=== PATIENT | male | born 1945 | race Caucasian/White ===

== ENCOUNTER → 2016-11-04 | Outpatient (CLI) | payer MEDICARE, OTHER ==
[~2016-11-04] MED LIST: BARIUM SUSPENSION 105% (LIQUID POLIBAR PLUS) 240 ML/DOSE PO ONE; BARIUM SUSPENSION 60% (LIQUID EZ PAQUE) 240 ML DOSE PO ONE
--- NOTE | 2016-11-04 09:27 | Diagnostic Imaging Report ---
EXAMINATION: Barium swallow double-contrast. INDICATION: Dysphagia Fluoroscopy time: 33 seconds TECHNIQUE: Infrastructure Technician image of the chest was performed. Subsequently, the patient was given gas forming granules for oral ingestion followed by thick and thin barium to drink. Swallowing through the esophagus was observed with fluoroscopy and overhead images, as well as multiple spot images in the upright and prone positions, were taken. FINDINGS: Infrastructure Technician image of the chest demonstrate no significant abnormality. No significant reflux is seen during the study. Occasional tertiary contractions with intermittent mild delay of esophageal emptying is seen. The esophagus is normal in caliber and contour. There is no mucosal abnormality, diverticulum or filling defect to suggest a mass. There is no hiatal hernia demonstrated. 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 Dictated by: Dictated on workstation # [id number]
== END ==
LOC: RAD 08:23
DX: R13.10 Dysphagia, unspecified (principal)
CPT/HCPCS: 74220

== ENCOUNTER → 2019-01-04 | Outpatient (CLI) | payer MEDICARE, OTHER | END | disposition home or self-care (01) | LOC: PREOP 06:42 | PROVIDERS: ATTEND Specialist | DX: Z01.818 Encounter for other preprocedural examination (principal) ==

== ENCOUNTER 2019-01-06 07:48 | Day surgery (SDC) | payer MEDICARE, OTHER ==
[~2019-01-06] VITALS: Ht 180.3 cm; Wt 95.3 kg
[2019-01-06] MEDS: TETRACAINE 0.5% OPHTH SOLN 4 ML BTL (SINGLE DOSE ONLY) OU PRN ×4 (08:01→08:17)
[2019-01-06 08:03] VITALS: BP 147/83
[2019-01-06] MEDS: PHENYLEPHRINE 10% OPHTH (NEO-SYN) 5 ML BTL OU PRN ×3 (08:06→08:17)
[2019-01-06] MEDS: TROPICAMIDE 1% OPH SOLN (MYDRIACYL) 15 ML BTL OU PRN ×3 (08:06→08:17)
--- NOTE | 2019-01-06 08:51 | Ophthalmologist Pre-Op Note ---
Pre-Operative Progress Note H&P Reviewed The H&P was reviewed, patient examined and no changes noted. Date H&P Reviewed: Jan 06, 2019 Time H&P Reviewed: 08:51 Pre-Op Dx Secondary Cataract, Right Eye ZACH PEREZ MD Jan 06, 2019 08:51
--- OUTSIDE RECORDS SUMMARY | 2019-01-06 08:52 | XMS REPORT | Continuity of Care Document ---
Author Organization Unknown Address Unknown Allergies Active Description Code Type Severity Reaction Onset Reported/Identified Relationship to Patient Clinical Status Yes No Known Allergies [id number] Drug Allergy Unknown N/A 09/25/2014 Medications There is no data. Problems Date Dx Coded Attending Type Code Diagnosis Diagnosed By 05/31/2013 ERNIE AGUIRRE MD Ot 593.9 RENAL URETERAL DIS NOS 09/25/2014 Ot 786.50 09/25/2014 Ot 789.06 09/25/2014 Ot 530.81 09/25/2014 Ot 535.40 09/25/2014 Ot 569.0 09/25/2014 Ot V76.12 09/25/2014 ERNIE AGUIRRE MD Ot 786.05 09/25/2014 ERNIE AGUIRRE MD Ot 786.2 09/25/2014 ERNIE AGUIRRE MD Ot 786.50 09/25/2014 Ot 593.9 09/25/2014 ERNIE AGUIRRE MD Ot 348.89 09/25/2014 Ot 593.9 10/09/2014 CATALINA CHURCHILL MD Ot 272.4 10/09/2014 ZHAO GREER, CATALINA Johnson Ot 278.00 10/09/2014 ZHAO GREER, CATALINA Johnson Ot 401.9 10/09/2014 CATALINA CHURCHILL MD Ot 786.50 10/09/2014 CATALINA CHURCHILL MD Ot 272.4 10/09/2014 ZHAO GREER, CATALINA Johnson Ot 278.00 10/09/2014 CATALINA CHURCHILL MD Ot 401.9 10/09/2014 CATALINA CHURCHILL MD Ot 786.50 10/09/2014 ZHAO GREER, CATALINA Johnson Ot 272.4 10/09/2014 ZHAO GREER, CATALINA Johnson Ot 278.00 10/09/2014 CATALINA CHURCHILL MD Ot 401.9 10/09/2014 CATALINA CHURCHILL MD Ot 786.50 11/16/2014 CATALINA CHURCHILL MD Ot 272.4 11/16/2014 CATALINA CHURCHILL MD Ot 278.00 11/16/2014 CATALINA CHURCHILL MD Ot 401.9 11/16/2014 CATALINA CHURCHILL MD Ot 786.50 11/03/2016 Ot 530.81 ESOPHAGEAL REFLUX 11/03/2016 Ot 535.40 OTH SPECIFIED GASTRITIS,W/O MENTION OF H 11/03/2016 Ot 569.0 ANAL RECTAL POLYP 11/03/2016 Ot V76.12 OTH SCREEN MAMMO- MALIGN NEOPLASM OF HÉCTOR 11/03/2016 ERNIE AGUIRRE MD Ot 786.05 SHORTNESS OF BREATH 11/03/2016 ERNIE AGUIRRE MD Ot 786.2 COUGH 11/03/2016 ERNIE AGUIRRE MD Ot 786.50 CHEST PAIN NOS 11/03/2016 Ot 593.9 RENAL URETERAL DIS NOS 11/03/2016 ERNIE AGUIRRE MD Ot 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 11/03/2016 CATALINA CHURCHILL MD Ot 272.4 HYPERLIPIDEMIA NEC/NOS 11/03/2016 CATALINA CHURCHILL MD Ot 278.00 OBESITY, NOS 11/03/2016 CATALINA CHURCHILL MD Ot 401.9 HYPERTENSION NOS 11/03/2016 CATALINA CHURCHILL MD Ot 786.50 CHEST PAIN NOS 11/04/2016 Ot 530.81 ESOPHAGEAL REFLUX 11/04/2016 Ot 535.40 OTH SPECIFIED GASTRITIS,W/O MENTION OF H 11/04/2016 Ot 569.0 ANAL RECTAL POLYP 11/04/2016 Ot V76.12 OTH SCREEN MAMMO- MALIGN NEOPLASM OF HÉCTOR 11/04/2016 ERNIE AGUIRRE MD Ot 786.05 SHORTNESS OF BREATH 11/04/2016 ERNIE AGUIRRE MD Ot 786.2 COUGH 11/04/2016 ERNIE AGUIRRE MD Ot 786.50 CHEST PAIN NOS 11/04/2016 Ot 593.9 RENAL URETERAL DIS NOS 11/04/2016 ERNIE AGUIRRE MD Ot 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 11/04/2016 CATALINA CHURCHILL MD Ot 272.4 HYPERLIPIDEMIA NEC/NOS 11/04/2016 CATALINA CHURCHILL MD Ot 278.00 OBESITY, NOS 11/04/2016 CATALINA CHURCHILL MD Ot 401.9 HYPERTENSION NOS 11/04/2016 CATALINA CHURCHILL MD Ot 786.50 CHEST PAIN NOS 11/05/2016 MILTON WYNNE MANAGER RETIREMENT Ot R13.10 DYSPHAGIA, UNSPECIFIED 11/05/2016 MILTON WYNNE MANAGER RETIREMENT Ot R13.10 DYSPHAGIA, UNSPECIFIED 11/05/2016 MILTON WYNNE MANAGER RETIREMENT Ot R13.10 DYSPHAGIA, UNSPECIFIED 12/02/2016 MILTON WYNNE MANAGER RETIREMENT Ot R13.10 DYSPHAGIA, UNSPECIFIED 12/07/2016 MILTON WYNNE MANAGER RETIREMENT Ot R13.10 DYSPHAGIA, UNSPECIFIED 01/05/2019 ZACH PEREZ MD Ot Z01.818 ENCOUNTER FOR OTHER PREPROCEDURAL EXAMIN Procedures There is no data. Results There is no data. Encounters ACCT No. Visit Date/Time Discharge Status Pt. Type Provider Facility Loc./Unit Complaint [id number] 11/04/2016 08:23:00 11/04/2016 23:59:59 CLS Outpatient SHERRELLMARISCody Wild MANAGER RETIREMENT [facility] RAD R13.10 DYSPHAGIA [id number] 09/25/2014 09:46:00 09/25/2014 23:59:59 CLS Outpatient CATALINA CHURCHILL MD [facility] CARD CP,HTN,HLP [id number] 09/06/2013 08:36:00 09/06/2013 23:59:59 CLS Outpatient ERNIE AGUIRRE MD [facility] RAD RT MIDDLE LOBE LESION [id number] 03/06/2013 08:53:00 05/31/2013 00:01:00 DIS Outpatient ERNIE AGUIRRE MD [facility] LAB RENAL INSUFFIENCY [id number] 02/24/2013 15:21:00 02/24/2013 23:59:59 CLS Outpatient ERNIE AGUIRRE MD [facility] RAD COUGH,CHEST PAIN, [id number] 01/06/2019 10:15:00 PEN Preadmit ZACH PEREZ MD [facility] SDC YAG [id number] 01/04/2019 06:42:00 ACT Outpatient ZACH PEREZ MD L [facility] PREOP YAG LEFT EYE [id number] 06/01/2013 00:00:00 Document Registration [id number] 06/12/2009 08:22:00 Document Registration [id number] 05/20/2009 08:03:00 Document Registration [id number] 05/13/2009 15:17:00 Document Registration [email or web address] 09/26/2014 00:42:29 ACT Document Registration
[2019-01-06 08:57] VITALS: BP 147/83
--- NOTE | 2019-01-06 09:01 | Ophthalmology Operative Report ---
YAG Capsulotomy PREOPERATIVE DIAGNOSIS: Secondary Cataract Left Eye POSTOPERATIVE DIAGNOSIS: Secondary Cataract Left Eye PROCEDURE: YAG Capsulotomy, left eye SURGEON: Noble Perez ANESTHESIA: Topical anesthesia COMPLICATIONS: None ESTIMATED BLOOD LOSS: Minimal DESCRIPTION OF PROCEDURE: After proper informed consent was obtained, the patient's, a 73 male left eye received one drop of Tropicamide and one drop of Tetracaine. The patient was then placed at the YAG laser and using a power of [3.7 ] millijoules and [16 ] bursts were used to fashion a central capsulotomy. The patient tolerated the procedure well without complications. NOBLE PEREZ MD Jan 06, 2019 09:01
== END 2019-01-06 08:57 | disposition home or self-care (01) ==
LOC: SDC 07:48
PROVIDERS: ATTEND Specialist
DX: H26.492 Other secondary cataract, left eye (principal); Z87.891 Personal history of nicotine dependence; Z79.899 Other long term (current) drug therapy

== ENCOUNTER → 2019-09-09 | Outpatient (CLI) | payer MEDICARE ==
[2019-09-09 17:44] LABS: BASOPHILS % (AUTO) 0 % (0-10); EOSINOPHILS # (AUTO) 0.2 10^3/uL (0.0-0.3); EOSINOPHILS % (AUTO) 1 % (0-10); HEMATOCRIT 45 % (40-54); HEMOGLOBIN 15.8 G/DL (13.3-17.7); LYMPHOCYTES # (AUTO) 2.3 X 10^3 (1.0-4.0); LYMPHOCYTES % (AUTO) 16 % (12-44); MEAN CORPUSCULAR HEMOGLOBIN 31 PG (25-34); MEAN CORPUSCULAR HGB CONC 35 G/DL (32-36); MEAN CORPUSCULAR VOLUME 88 FL (80-99); MEAN PLATELET VOLUME 9.7 FL (7.4-10.4); MONOCYTES # (AUTO) 1.4 X 10^3 (0.0-1.0); MONOCYTES % (AUTO) 10 % (0-12); NEUTROPHILS # (AUTO) 10.5 X 10^3 (1.8-7.8); NEUTROPHILS % (AUTO) 73 % (42-75); PLATELET COUNT 345 10^3/uL (130-400); RED CELL DISTRIBUTION WIDTH 13.2 % (10.0-14.5); WHITE BLOOD COUNT 14.4 10^3/uL (4.3-11.0)
[2019-09-09 17:58] LABS: ALANINE AMINOTRANSFERASE 14 U/L (0-55); ALBUMIN 4.6 GM/DL (3.2-4.5); ALKALINE PHOSPHATASE 48 U/L (40-136); AMYLASE 75 U/L (25-125); BUN/CREATININE RATIO 13; CALCIUM 9.5 MG/DL (8.5-10.1); CARBON DIOXIDE 23 MMOL/L (21-32); CHLORIDE 100 MMOL/L (98-107); CREATININE SERUM 1.46 MG/DL (0.60-1.30); GFR ESTIMATED 47; GLUCOSE 95 MG/DL (70-105); LIPASE 68 U/L (8-78); POTASSIUM 4.2 MMOL/L (3.6-5.0); SODIUM 133 MMOL/L (135-145); TOTAL PROTEIN 7.4 GM/DL (6.4-8.2)
[2019-09-09 17:59] LABS: BAND NEUTROPHILS 2 %; NEUTROPHILS % (MANUAL) 72 %
[2019-09-09 18:00] LABS: EOSINOPHILS % (MANUAL) 2 %; LYMPHOCYTES % (MANUAL) 15 %; MONOCYTES % (MANUAL) 9 %; RBC MORPH NORMAL
== END ==
LOC: LAB 17:16
PROVIDERS: ATTEND Nurse Practitioner Family
DX: K56.699 Other intestinal obstruction unspecified as to partial versus complete obstruction (principal); N30.01 Acute cystitis with hematuria; I10 Essential (primary) hypertension; J30.89 Other allergic rhinitis; E78.5 Hyperlipidemia, unspecified
CPT/HCPCS: 36415; 80053; 82150; 83690; 85007; 85027; 86677

== ENCOUNTER → 2019-09-09 | Outpatient (CLI) | payer MEDICARE, OTHER ==
--- NOTE | 2019-09-09 15:16 | Diagnostic Imaging Report ---
PROCEDURE: CT abdomen and pelvis without contrast. TECHNIQUE: Multiple contiguous axial images were obtained through the abdomen and pelvis without the use of intravenous contrast. Auto Exposure Controls were utilized during the CT exam to meet ALARA standards for radiation dose reduction. INDICATION: Generalized abdominal pain. Concern for bowel obstruction. COMPARISON: None. FINDINGS: The heart is unremarkable. The included lung bases are clear. The liver, spleen, adrenal glands, and kidneys have a normal noncontrast CT appearance. There is no pathologically enlarged mesenteric or retroperitoneal adenopathy. Mild inflammatory changes are seen adjacent to the 2nd and 3rd portion of the duodenum and pancreatic head. No pancreatic masses are visualized or pancreatic ductal dilation. The bowel loops are nondilated. The appendix is visualized in the right lower quadrant and has a normal appearance. There is no free fluid or free air. The osseous structures are age-appropriate. A hemangioma is visualized in the L2 vertebral body. There is calcified aortic and iliac atherosclerotic plaque without aneurysm. The bladder is nondistended. There is no free air, loculated collection, or adenopathy in the pelvis. IMPRESSION: 1. Mild inflammatory changes adjacent to the 2nd and 3rd portion of the duodenum and pancreatic head. These findings can be seen with duodenitis versus groove pancreatitis. Recommend correlation with clinical findings and patient's symptoms. No evidence of bowel obstruction. Findings were discussed with Orly Peterson at 3:10 PM on 09/09/[address] Krzysztof Londono. Dictated by: Dictated on workstation # [id number]
== END ==
LOC: RAD 13:33
PROVIDERS: ATTEND Nurse Practitioner Family
DX: N30.01 Acute cystitis with hematuria (principal); I10 Essential (primary) hypertension; J30.89 Other allergic rhinitis; E78.5 Hyperlipidemia, unspecified; K56.699 Other intestinal obstruction unspecified as to partial versus complete obstruction
CPT/HCPCS: 74176

== ENCOUNTER → 2019-11-01 | Outpatient (CLI) | payer MEDICARE ==
[~2019-11-01] MED LIST changes: -BARIUM SUSPENSION 105% (LIQUID POLIBAR PLUS) 240 ML/DOSE PO ONE; -BARIUM SUSPENSION 60% (LIQUID EZ PAQUE) 240 ML DOSE PO ONE; +BARIUM for suspension 96% w/w (Vanilla Silq Medium Density) PO ONE; +BARIUM for suspension 98% w/w (Vanilla Silq High Density) PO ONE; +FENO145T26 PO; +LISI-552 PO
--- NOTE | 2019-11-01 10:45 | Diagnostic Imaging Report ---
EXAMINATION: Barium swallow, esophagram. INDICATION: Dysphagia. TECHNIQUE: A double contrast exam was performed. FINDINGS: The previous barium swallow exam of 11/04/2016 noted minimal motility dysfunction but failed to show any sign of a mass or stricture. However, on this exam, when the patient swallowed there did appear to be a focal area of narrowing of the proximal esophagus. The hypopharynx proximal to this area of narrowing also seems somewhat distended. I am not certain if this area of narrowing is due to a stricture, prominence of the cricopharyngeus muscle, or to a combination of both. Endoscopy would be recommended for further evaluation. The esophagus distal to the area of narrowing is generally unremarkable. There is no hiatal hernia or gastroesophageal reflux. The stomach shows good distensibility and motility. The duodenal bulb and proximal small bowel are unremarkable for an acute abnormality. IMPRESSION: 1. There is a focal area of narrowing in the proximal esophagus. Whether this is secondary to a stricture, prominence of the cricopharyngeus muscle, or to a combination of both is not certain. Endoscopy would be recommended for further study. 2. There is no other abnormality of the esophagus. 3. The stomach, duodenal bulb, and proximal small bowel are generally unremarkable. 4. These results were discussed with Dr. Carpenter. Dictated by: Dictated on workstation # [id number]
== END ==
LOC: RAD 09:19
PROVIDERS: ATTEND Surgery
DX: R13.19 Other dysphagia (principal)
CPT/HCPCS: 74220

== ENCOUNTER 2019-11-03 06:31 | Outpatient (RCR) | payer MEDICARE ==
[~2019-11-03] VITALS: Ht 177.8 cm; Wt 94.5 kg
[~2019-11-03 06:31] MED LIST changes: -BARIUM for suspension 96% w/w (Vanilla Silq Medium Density) PO ONE; -BARIUM for suspension 98% w/w (Vanilla Silq High Density) PO ONE
[2019-11-07] MEDS ORDERED: PANT40TA2 PO (12:20)
== END 2019-11-03 15:44 | disposition home or self-care (01) ==
LOC: PREOP 06:31
PROVIDERS: ATTEND Surgery
DX: Z01.818 Encounter for other preprocedural examination (principal); Z11.59 Encounter for screening for other viral diseases
CPT/HCPCS: 87635

== ENCOUNTER → 2019-12-20 | Outpatient (CLI) | payer MEDICARE ==
[~2019-12-20] MED LIST changes: +PANT40TA2 PO
--- NOTE | 2019-12-20 13:02 | Diagnostic Imaging Report ---
INDICATION: Dysphagia. FINDINGS: NECK: The nasopharynx, oropharynx, and hypopharynx are unremarkable. The prevertebral and retropharyngeal spaces are unremarkable. No airway embarrassment. The epiglottis and aryepiglottic folds are normal. The parotid, submandibular, and thyroid glands are unremarkable. No cervical lymphadenopathy, mass, or fluid collection. Chronic degenerative changes to the mid to lower cervical spine with no acute appearing or destructive bony pathology. Cervical esophagus shows no radiodense filling defect or evidence for its obstruction or perforation. CHEST: The thoracic esophagus is nondilated. No paraesophageal mass, hemorrhage, fluid collection, or gas. No findings of an impacted foreign body, obstruction, or perforation. The heart and pericardium appear nonacute. There is no pleural effusion. The aorta is nonaneurysmal and patent. No focal pulmonary consolidation. No lung mass or thoracic lymphadenopathy. No acute soft tissue or osseous chest wall lesion. The visualized upper abdomen appears nonacute. IMPRESSION: NECK: No mass, fluid collection, inflammatory process, airway embarrassment, or foreign body. CHEST: No acute appearing abnormality. Dictated by: Dictated on workstation # [id number]
== END ==
LOC: RAD 10:39
PROVIDERS: ATTEND Surgery
DX: R13.10 Dysphagia, unspecified (principal)
CPT/HCPCS: 70491; 71260

== ENCOUNTER 2022-12-16 08:23 | Outpatient (CLI) | payer MEDICARE ==
[~2022-12-16 08:23] MED LIST changes: -LISI-552 PO; +LISI20TA26 PO
== END 2022-12-16 08:50 ==
LOC: SLEEP 08:23
PROVIDERS: ATTEND Internal Medicine Cardiovascular Disease
DX: G47.33 Obstructive sleep apnea (adult) (pediatric) (principal); I10 Essential (primary) hypertension
CPT/HCPCS: G0399

== ENCOUNTER → 2023-01-21 | Outpatient (CLI) | payer MEDICARE ==
--- NOTE | 2023-01-21 10:42 | Diagnostic Imaging Report ---
CT Lung Screening INDICATION:40 pack year smoking history, cessation 20 years ago TECHNIQUE: Noncontrast, low-dose CT imaging performed according to the lung cancer screening protocol. Auto Exposure Controls were utilize during the CT exam to meet ALARA standards for radiation dose reduction. COMPARISON:Chest CT 12/20/2019 FINDINGS:No suspicious pulmonary nodule or dominant lung mass. There were no findings to suggest lung cancer. There is no thoracic adenopathy. The aorta nonaneurysmal. There are coronary artery atherosclerotic vascular calcifications along the LAD. No pleural or pericardial effusion. There is a tiny hiatal hernia. The visible upper abdomen nonacute. IMPRESSION: No findings of lung cancer LUNG-RADS CATEGORY:Category 1 MODIFIER: None OTHER SIGNIFICANT FINDINGS: Coronary atherosclerotic calcifications, no acute appearing abnormality. Dictated by: Dictated on workstation # [id number]
== END ==
LOC: RAD 09:07
PROVIDERS: ATTEND Nurse Practitioner Family
DX: Z12.2 Encounter for screening for malignant neoplasm of respiratory organs (principal); Z87.891 Personal history of nicotine dependence
CPT/HCPCS: 71271